=== PATIENT | female | born 1995 | race Caucasian/White ===

== ENCOUNTER 2022-11-15 12:59 | Emergency (ER) | payer OTHER ==
[2022-11-15] MEDS ORDERED: ACETAMINOPHEN 325 MG TABLET (FP) PO ONE (13:15)
[2022-11-15 13:23] VITALS: BP 108/72; PULSE 69; RESP 15; TEMP 98.2; BMI 30.4
[2022-11-15] MEDS ORDERED: ACETAMINOPHEN 325 MG TABLET (FP) ONE (13:23)
== END 2022-11-15 14:02 | disposition home or self-care (01) ==
LOC: FER 12:59
DX: S60.811A Abrasion of right wrist, initial encounter (principal); M25.531 Pain in right wrist; R20.2 Paresthesia of skin; W54.1XXA Struck by dog, initial encounter; W22.09XA Striking against other stationary object, initial encounter; Y93.K1 Activity, walking an animal
CPT/HCPCS: 73110-TC-RT-FY; 99283-25